=== PATIENT | male | born 1945 | race Caucasian/White ===

== ENCOUNTER 2016-05-20 14:57 | Inpatient (IN) | payer OTHER ==
[~2016-05-20] VITALS: Ht 182.9 cm; Wt 109.3 kg
[~2016-05-20 14:57] MED LIST: CALCIUM 600 +1 EAC1 PO; CALCIUM 600 MG1 EACH PO; CLEOCIN300 MG PO; CLINDAMYCIN HC300 MG PO; COMBIGAN O20 DROP/5 RIGHT EYE; COUMADIN5 MG PO; Coumadin,Jantoven PO; FERROUS SULFAT325 MG PO; LISINOPRIL-HCT1 EAC3 PO; NO HOME MEDS; PANTOPRAZOLE SO40 MG PO; REFRESH TEARS15 ML BOTH EYES; REFRESH TEARS15 ML LEFT EYE; XARELTO1 EACH PO; XARELTO15 MG PO; XARELTO20 MG PO
[2016-05-20 16:16] LABS: HEMATOCRIT 33.3 % (38.0-50.0); MCH 24.9 PG (29.0-34.0); MCHC 30.9 G/DL (30.0-36.0); MCV 80.6 FL (86-99); PLATELET COUNT 152 K/uL (156-360); RBC DIS.WIDTH-CV 17.3 % (11.8-14.6); RBC DIS.WIDTH-SD 50.5 % (39-53); RED BLOOD COUNT 4.13 M/uL (4.00-5.50); WHITE BLOOD COUNT 5.3 K/uL (4.1-10.2)
[2016-05-20 16:28] LABS: CHLORIDE 113 mEq/L (99-109); SODIUM 144 mEq/L (136-147)
[2016-05-20 16:30] LABS: GLUCOSE 108 mg/dL (70-99)
[2016-05-20 16:31] LABS: ANION GAP 10 MEQ/L (2-14)
[2016-05-20 16:32] LABS: TOTAL BILIRUBIN 0.8 mg/dL (0.0-1.0)
[2016-05-20 16:34] LABS: ALKALINE PHOSPHATASE 119 IU/L (3-129); GFR ESTIMATE (CALCULATED) > 59 mL/min/
[2016-05-20 16:35] LABS: UREA NITROGEN (BUN) 27 mg/dL (9-23)
[2016-05-20 16:38] LABS: TROP-I INTERPRETATION NEGATIVE; TROPONIN-I < 0.01 ng/mL (0.0-0.30)
[2016-05-20 22:59] LABS: TROP-I INTERPRETATION NEGATIVE; TROPONIN-I 0.01 ng/mL (0.0-0.30)
[2016-05-21 03:27] LABS: HEMATOCRIT 31.1 % (38.0-50.0); MCH 24.9 PG (29.0-34.0); MCHC 31.2 G/DL (30.0-36.0); MCV 79.7 FL (86-99); MEAN PLAT.VOLUME 9.4 uM^3 (9.0-12.4); PLATELET COUNT 142 K/uL (156-360); RBC DIS.WIDTH-CV 17.2 % (11.8-14.6); RBC DIS.WIDTH-SD 50.2 % (39-53); WHITE BLOOD COUNT 5.9 K/uL (4.1-10.2)
[2016-05-21 03:36] LABS: CHLORIDE 113 mEq/L (99-109); POTASSIUM 3.7 mEq/L (3.7-5.4); SODIUM 143 mEq/L (136-147)
[2016-05-21 03:39] LABS: ANION GAP 10 MEQ/L (2-14)
[2016-05-21 03:42] LABS: GFR ESTIMATE (CALCULATED) > 59 mL/min/
[2016-05-21 03:43] LABS: UREA NITROGEN (BUN) 24 mg/dL (9-23)
[2016-05-21 03:48] LABS: TROP-I INTERPRETATION NEGATIVE; TROPONIN-I 0.02 ng/mL (0.0-0.30)
[2016-05-21 03:49] LABS: GLUCOSE 182 mg/dL (70-99)
[2016-05-21 10:49] LABS: TROP-I INTERPRETATION NEGATIVE; TROPONIN-I < 0.01 ng/mL (0.0-0.30)
[2016-05-21 15:16] VITALS: BP 126/84
[2016-05-21 19:42] VITALS: BP 119/76
[2016-05-21 21:25] LABS: INTERNAL CONTROL VALID? YES
[2016-05-22] VITALS (7 sets, daily range): BP systolic 100–120; BP diastolic 60–81
[2016-05-22 06:40] LABS: HEMATOCRIT 30.6 % (38.0-50.0); MCH 24.5 PG (29.0-34.0); MCHC 30.7 G/DL (30.0-36.0); MCV 79.9 FL (86-99); MEAN PLAT.VOLUME 10.3 uM^3 (9.0-12.4); PLATELET COUNT 129 K/uL (156-360); RBC DIS.WIDTH-CV 17.2 % (11.8-14.6); RBC DIS.WIDTH-SD 49.7 % (39-53); RED BLOOD COUNT 3.83 M/uL (4.00-5.50); WHITE BLOOD COUNT 5.3 K/uL (4.1-10.2)
[2016-05-22 07:07] LABS: ANION GAP 9 MEQ/L (2-14); CHLORIDE 108 MEQ/L (99-109); GFR ESTIMATE (CALCULATED) > 59 mL/min/; IRON 33 MCG/DL (35-150); POTASSIUM 3.8 MEQ/L (3.7-5.4); SAMPLE HEMOLYSIS CHECK 0; SAMPLE ICTERIC CHECK 0; SAMPLE LIPEMIA CHECK 0; SODIUM 146 MEQ/L (136-147); UREA NITROGEN (BUN) 23 mg/dL (9-23)
[2016-05-22 07:25] LABS: GLUCOSE 90 mg/dL (70-99)
[2016-05-22 08:29] LABS: FERRITIN 16 NG/ML (22-322)
[2016-05-23 04:26] VITALS: BP 94/60
[2016-05-23 07:03] LABS: EOSINOPHIL COUNT 0.3 K/uL (0-0.3); HEMATOCRIT 30.4 % (38.0-50.0); IMMATURE GRANULOCYTE (%) 0.2 % (0.0-0.7); INSTRUMENT ABS NEUTROPHIL CT 2.4 K/uL; LYMPHOCYTE COUNT 1.9 K/uL (1.0-2.8); MCH 24.5 PG (29.0-34.0); MCHC 30.9 G/DL (30.0-36.0); MCV 79.4 FL (86-99); MEAN PLAT.VOLUME 10.2 uM^3 (9.0-12.4); MONOCYTE (%) 12.1 % (3-12); MONOCYTE COUNT 0.6 K/uL (0-0.8); NEUTROPHIL (%) 45.9 % (45-76); NEUTROPHIL COUNT 2.4 K/uL (1.8-6.4); PLATELET COUNT 119 K/uL (156-360); RBC DIS.WIDTH-CV 17.5 % (11.8-14.6); RBC DIS.WIDTH-SD 50.4 % (39-53); RED BLOOD COUNT 3.83 M/uL (4.00-5.50); WHITE BLOOD COUNT 5.2 K/uL (4.1-10.2)
[2016-05-23 07:30] LABS: ANION GAP 10 MEQ/L (2-14); CHLORIDE 107 MEQ/L (99-109); GFR ESTIMATE (CALCULATED) > 59 mL/min/; GLUCOSE 87 mg/dL (70-99); POTASSIUM 3.7 MEQ/L (3.7-5.4); SAMPLE HEMOLYSIS CHECK 0; SAMPLE ICTERIC CHECK 0; SAMPLE LIPEMIA CHECK 0; SODIUM 143 MEQ/L (136-147); UREA NITROGEN (BUN) 30 mg/dL (9-23)
[2016-05-23 08:13] VITALS: BP 109/78
[2016-05-23 12:07] VITALS: BP 112/72
[2016-05-23 16:30] VITALS: BP 120/83
[2016-05-23 19:39] VITALS: BP 115/75
[2016-05-23 23:58] VITALS: BP 101/67
[2016-05-24 04:40] VITALS: BP 96/50
[2016-05-24 08:49] VITALS: BP 125/90
[2016-05-24 09:26] LABS: HEMATOCRIT 33.3 % (38.0-50.0); MCH 24.3 PG (29.0-34.0); MCHC 30.9 G/DL (30.0-36.0); MCV 78.7 FL (86-99); PLATELET COUNT 128 K/uL (156-360); RBC DIS.WIDTH-CV 17.2 % (11.8-14.6); RED BLOOD COUNT 4.23 M/uL (4.00-5.50); WHITE BLOOD COUNT 6.1 K/uL (4.1-10.2)
[2016-05-24 10:01] LABS: ANION GAP 10 MEQ/L (2-14); CHLORIDE 104 MEQ/L (99-109); GFR ESTIMATE (CALCULATED) > 59 mL/min/; GLUCOSE 152 mg/dL (70-99); POTASSIUM 3.4 MEQ/L (3.7-5.4); SAMPLE HEMOLYSIS CHECK 0; SAMPLE ICTERIC CHECK 0; SAMPLE LIPEMIA CHECK 0; SODIUM 141 MEQ/L (136-147); UREA NITROGEN (BUN) 31 mg/dL (9-23)
[2016-05-24 12:01] VITALS: BP 118/79
[2016-05-24 16:27] VITALS: BP 111/69
[2016-05-24 21:00] VITALS: BP 129/73
[2016-05-25 00:10] VITALS: BP 93/57
[2016-05-25 05:08] VITALS: BP 102/67
[2016-05-25 08:00] VITALS: BP 123/78
[2016-05-25] MEDS ORDERED: LOPRESSOR25 MG PO (10:04)
[2016-05-25] MEDS ORDERED: LISINOPRIL2.5 MG PO (10:04)
[2016-05-25 12:02] VITALS: BP 104/68
[2016-05-25] MEDS ORDERED: LASIX40 MG PO (12:02)
[2016-05-25] MEDS ORDERED: ATORVASTATIN CA20 MG PO (12:14)
== END 2016-05-25 15:44 | disposition home or self-care (01) | DRG 292 ==
LOC: EME 14:57 → EDOF 22:03 → 4EAST 22:03
PROVIDERS: Hospitalist; Physician Assistant; Physician Assistant Medical; Student in an Organized Health Care Education/Training Program
DX: I11.0 Hypertensive heart disease with heart failure (principal); I50.21 Acute systolic (congestive) heart failure; I48.91 Unspecified atrial fibrillation; I82.411 Acute embolism and thrombosis of right femoral vein; I82.421 Acute embolism and thrombosis of right iliac vein; I78.0 Hereditary hemorrhagic telangiectasia; E78.5 Hyperlipidemia, unspecified; I89.0 Lymphedema, not elsewhere classified; D64.9 Anemia, unspecified; I71.2 Thoracic aortic aneurysm, without rupture; N20.0 Calculus of kidney; Z86.711 Personal history of pulmonary embolism; Z86.718 Personal history of other venous thrombosis and embolism; Z95.828 Presence of other vascular implants and grafts; Z85.46 Personal history of malignant neoplasm of prostate
CPT/HCPCS: 71020; 71275; 74175; 80048; 80053; 82272; 82728; 83540; 84443; 84466; 84484; 85025; 85027; 93005; 93306; 99281; 99285; J1940; J7030

== ENCOUNTER 2017-01-29 05:05 | Observation (INO) | payer OTHER ==
[~2017-01-29] VITALS: Ht 182.9 cm; Wt 108.5 kg
[2017-01-29] VITALS (7 sets, daily range): BP systolic 103–125; BP diastolic 68–103
[~2017-01-29 05:05] MED LIST changes: +ATORVASTATIN CA20 MG PO; +LASIX40 MG PO; +LISINOPRIL2.5 MG PO; +LOPRESSOR25 MG PO
[2017-01-29 05:26] LABS: EOSINOPHIL COUNT 0.5 K/uL (0-0.3); HEMATOCRIT 33.5 % (38.0-50.0); IMMATURE GRANULOCYTE (%) 0.4 % (0.0-0.7); INSTRUMENT ABS NEUTROPHIL CT 2.3 K/uL; LYMPHOCYTE COUNT 1.9 K/uL (1.0-2.8); MCH 32.3 PG (29.0-34.0); MCHC 33.7 G/DL (30.0-36.0); MCV 95.7 FL (86-99); MEAN PLAT.VOLUME 10.3 uM^3 (9.0-12.4); MONOCYTE (%) 10.4 % (3-12); MONOCYTE COUNT 0.5 K/uL (0-0.8); NEUTROPHIL (%) 43.5 % (45-76); NEUTROPHIL COUNT 2.3 K/uL (1.8-6.4); PLATELET COUNT 127 K/uL (156-360); RBC DIS.WIDTH-CV 13.9 % (11.8-14.6); RBC DIS.WIDTH-SD 48.2 % (39-53); WHITE BLOOD COUNT 5.2 K/uL (4.1-10.2)
[2017-01-29 05:28] LABS: INTER. NORMALIZED RATIO 1.1
[2017-01-29 05:30] LABS: PTT 25.6 SEC (25-37)
[2017-01-29 05:31] LABS: AMYLASE 68 IU/L (1-118); CHLORIDE 110 mEq/L (99-109); POTASSIUM 3.5 mEq/L (3.7-5.4); SODIUM 145 mEq/L (136-147)
[2017-01-29 05:32] LABS: GLUCOSE 108 mg/dL (70-99)
[2017-01-29 05:34] LABS: ANION GAP 12 MEQ/L (2-14)
[2017-01-29 05:36] LABS: GFR ESTIMATE (CALCULATED) > 59 mL/min/
[2017-01-29 05:37] LABS: UREA NITROGEN (BUN) 21 mg/dL (9-23)
[2017-01-29 05:39] LABS: LIPASE 58 U/L (1.0-51.0); SERUM ETHYL ALCOHOL < 10 mg/dL
[2017-01-29 05:45] LABS: TROP-I INTERPRETATION NEGATIVE; TROPONIN-I < 0.01 ng/mL (0.0-0.30)
[2017-01-29 09:28] LABS: METH RESISTANT S AUREUS PCR NEGATIVE (NEGATIVE)
[2017-01-29 09:33] LABS: PROBE CHECK PASS; SPECIMEN PROCESSING CONTROL PASS
[2017-01-29] MEDS ORDERED: LIPITOR20 MG PO (10:47)
[2017-01-29] MEDS ORDERED: VITAMIN D2000 UNIT PO (10:48)
[2017-01-29] MEDS ORDERED: PROTONIX40 MG PO (10:59)
[2017-01-29] MEDS ORDERED: METOPROLOL SUCC25 MG PO (15:40)
[2017-01-30] VITALS (7 sets, daily range): BP systolic 89–131; BP diastolic 49–84
[2017-01-30 13:12] LABS: ANION GAP 7 MEQ/L (2-14); CHLORIDE 112 MEQ/L (99-109); SAMPLE HEMOLYSIS CHECK 0; SAMPLE ICTERIC CHECK 0; SAMPLE LIPEMIA CHECK 0; SODIUM 146 MEQ/L (136-147); TOTAL BILIRUBIN 1.3 MG/DL (0.0-1.0)
[2017-01-30 13:18] LABS: ALKALINE PHOSPHATASE 125 IU/L (3-129); GFR ESTIMATE (CALCULATED) > 59 mL/min/; GLUCOSE 134 mg/dL (70-99)
[2017-01-30 13:19] LABS: HEMATOCRIT 27.4 % (38.0-50.0); MCH 31.2 PG (29.0-34.0); MCHC 32.5 G/DL (30.0-36.0); MCV 96.1 FL (86-99); MEAN PLAT.VOLUME 10.1 uM^3 (9.0-12.4); PLATELET COUNT 105 K/uL (156-360); RBC DIS.WIDTH-CV 14.1 % (11.8-14.6); RBC DIS.WIDTH-SD 49.6 % (39-53); RED BLOOD COUNT 2.85 M/uL (4.00-5.50); WHITE BLOOD COUNT 7.2 K/uL (4.1-10.2)
[2017-01-30 13:20] LABS: UREA NITROGEN (BUN) 34 mg/dL (9-23)
[2017-01-30] MEDS ORDERED: LASIX40 MG PO (13:51)
[2017-01-30] MEDS ORDERED: K-DUR20 MEQ PO (13:51)
[2017-01-30] MEDS ORDERED: ZOFRAN4 MG PO (13:52)
[2017-01-30] MEDS ORDERED: METOPROLOL TA37.5 MG PO (14:36)
== END 2017-01-30 16:14 | disposition home or self-care (01) ==
LOC: EME → EDBD 05:05 → EME 05:05 → ENRESERV 05:53 → CATH 06:27 → EME 06:27 → ENRESERV 06:30 → 4WEST 06:53 → 2SOUTH 06:53 → 4WEST 07:25
PROVIDERS: Emergency Medicine; Family Medicine; Internal Medicine Interventional Cardiology
DX: R07.9 Chest pain, unspecified (principal); R94.31 Abnormal electrocardiogram [ECG] [EKG]; I48.1 Persistent atrial fibrillation; Z86.718 Personal history of other venous thrombosis and embolism; Z86.711 Personal history of pulmonary embolism; I11.0 Hypertensive heart disease with heart failure; I50.9 Heart failure, unspecified; I78.0 Hereditary hemorrhagic telangiectasia; D64.9 Anemia, unspecified; M79.89 Other specified soft tissue disorders; I27.20 Pulmonary hypertension, unspecified; I42.9 Cardiomyopathy, unspecified; I71.2 Thoracic aortic aneurysm, without rupture; I89.0 Lymphedema, not elsewhere classified; Z85.46 Personal history of malignant neoplasm of prostate; E87.6 Hypokalemia; R79.89 Other specified abnormal findings of blood chemistry; I95.9 Hypotension, unspecified; Z98.890 Other specified postprocedural states; Z87.11 Personal history of peptic ulcer disease; Z86.19 Personal history of other infectious and parasitic diseases; Z83.3 Family history of diabetes mellitus; Z80.6 Family history of leukemia
CPT/HCPCS: 71010; 78582; 80048; 80053; 81003; 82150; 83690; 84484; 85025; 85027; 85347; 85610; 85730; 86850; 86900; 86901; 87641; 90686; 93005; 93306; 93970; A9540; A9567; C1769; C1887; G0378; G0480; J0461; J1644; J2250; J2405; J3010; J7030

== ENCOUNTER 2017-03-17 22:14 | Emergency (ER) | payer OTHER ==
[~2017-03-17] VITALS: Ht 182.9 cm; Wt 140.0 kg
[~2017-03-17 22:14] MED LIST changes: +K-DUR20 MEQ PO; +LIPITOR20 MG PO; +METOPROLOL SUCC25 MG PO; +METOPROLOL TA37.5 MG PO; +PROTONIX40 MG PO; +VITAMIN D2000 UNIT PO; +ZOFRAN4 MG PO
[2017-03-17 22:59] LABS: BASOPHIL (%) 0.3 % (0-1); EOSINOPHIL (%) 4.5 % (0-5); EOSINOPHIL COUNT 0.3 K/uL (0-0.3); HEMATOCRIT 27.9 % (38.0-50.0); HEMOGLOBIN 8.7 G/DL (12.5-16.6); IMMATURE GRANULOCYTE (%) 0.3 % (0.0-0.7); LYMPHOCYTE (%) 20.7 % (15-42); LYMPHOCYTE COUNT 1.5 K/uL (1.0-2.8); MCHC 31.2 G/DL (30.0-36.0); MCV 83.5 FL (86-99); MONOCYTE (%) 11.5 % (3-12); MONOCYTE COUNT 0.8 K/uL (0-0.8); NEUTROPHIL (%) 62.7 % (45-76); NEUTROPHIL COUNT 4.5 K/uL (1.8-6.4); PLATELET COUNT 175 K/uL (156-360); RBC DIS.WIDTH-CV 17.8 % (11.8-14.6); RED BLOOD COUNT 3.34 M/uL (4.00-5.50); WHITE BLOOD COUNT 7.2 K/uL (4.1-10.2)
[2017-03-17 23:09] LABS: ALBUMIN 3.8 g/dL (3.2-4.8); CHLORIDE 110 mEq/L (99-109); POTASSIUM 4.3 mEq/L (3.7-5.4); SODIUM 142 mEq/L (136-147)
[2017-03-17 23:10] LABS: MAGNESIUM 1.9 mg/dL (1.3-2.7)
[2017-03-17 23:11] LABS: GLUCOSE 120 mg/dL (70-99)
[2017-03-17 23:13] LABS: TOTAL BILIRUBIN 1.2 mg/dL (0.0-1.0)
[2017-03-17 23:15] LABS: ALKALINE PHOSPHATASE 175 IU/L (3-129); GFR ESTIMATE (CALCULATED) 49 mL/min/ (58.99-99999)
[2017-03-17 23:16] LABS: UREA NITROGEN (BUN) 17 mg/dL (9-23)
[2017-03-17 23:17] LABS: AST (GOT) 57 IU/L (2-34)
[2017-03-17 23:18] LABS: ALT (GPT) 38 IU/L (3-49); CREATINE KINASE 93 IU/L (1-294); TOTAL CK 93 IU/L (1-294)
[2017-03-17 23:19] LABS: TROP-I INTERPRETATION NEGATIVE; TROPONIN-I 0.02 ng/mL (0.0-0.30)
[2017-03-17 23:23] LABS: CREATININE 1.5 mg/dL (0.6-1.3)
[2017-03-17 23:24] LABS: CK-MB 1.9 ng/mL (0.0-4.9)
[2017-03-18 01:24] LABS: DIGOXIN 0.6 ng/mL (0.8-2.0)
[2017-03-18] MEDS ORDERED: CARDIZEM LA240 MG PO (03:03)
[2017-03-18 03:50] VITALS: BP 121/64
== END 2017-03-18 03:51 | disposition home or self-care (01) ==
LOC: EME → EDBD 22:14 → EME 03-18 03:51
PROVIDERS: Emergency Medicine
DX: I48.91 Unspecified atrial fibrillation (principal); R05 Cough; R06.02 Shortness of breath; R60.0 Localized edema; I45.10 Unspecified right bundle-branch block; D64.9 Anemia, unspecified; Z86.711 Personal history of pulmonary embolism; Z86.718 Personal history of other venous thrombosis and embolism
CPT/HCPCS: 71045; 80053; 80162; 82550; 82553; 83735; 83880; 84484; 85025; 93005; 99281; 99285; J3475; J7644